=== PATIENT | female | born 1970 | race Asian ===

== ENCOUNTER 2019-01-22 09:30 | Emergency (ER) | payer OTHER ==
[~2019-01-22] VITALS: Ht 162.6 cm; Wt 56.7 kg
[2019-01-22 09:44] VITALS: Ht 162.6 cm; Wt 56.7 kg
[2019-01-22 12:24] VITALS: BP 132/71
== END 2019-01-22 12:05 | disposition home or self-care (01) ==
LOC: ED 09:30
DX: S09.8XXA Other specified injuries of head, initial encounter (principal); M54.2 Cervicalgia; M47.9 Spondylosis, unspecified; Z90.89 Acquired absence of other organs; V43.52XA Car driver injured in collision with other type car in traffic accident, initial encounter; Y93.I9 Activity, other involving external motion; Y92.488 Other paved roadways as the place of occurrence of the external cause; Y99.8 Other external cause status